=== PATIENT | female | born 1960 | race African-American/Black ===

== ENCOUNTER 2022-04-10 11:41 | Emergency (ER) | payer MEDICARE, MEDICAID ==
[~2022-04-10] VITALS: Ht 157.5 cm; Wt 57.0 kg
[2022-04-10 11:55] VITALS: BP 117/77
[2022-04-10] MEDS ORDERED: CALCITROL (12:08)
[2022-04-10] MEDS ORDERED: CATAPRESS (12:08)
[2022-04-10] MEDS ORDERED: SIMV-43 PO (12:08)
[2022-04-10] MEDS ORDERED: DIVA500T3 PO (12:08)
[2022-04-10] MEDS ORDERED: MELA5TAB19 PO (12:08)
[2022-04-10] MEDS ORDERED: LEVO150T8 PO (12:08)
[2022-04-10] MEDS ORDERED: ESCI20TA PO (12:08)
[2022-04-10] MEDS ORDERED: QUET200T PO (12:08)
[2022-04-10] MEDS ORDERED: FERR325T6 PO (12:08)
[2022-04-10] MEDS ORDERED: OMEP20TA23 PO (12:08)
[2022-04-10] MEDS ORDERED: OXYB5TAB16 PO (12:08)
[2022-04-10] MEDS ORDERED: ZOLP10TA2 PO (12:08)
[2022-04-10] MEDS ORDERED: ACETAMINOPHEN 500MG TABLET PO ONE (13:00)
== END 2022-04-10 15:03 | disposition home or self-care (01) ==
LOC: ER 11:41
DX: S60.222A Contusion of left hand, initial encounter (principal); W07.XXXA Fall from chair, initial encounter; Y93.89 Activity, other specified; Y92.89 Other specified places as the place of occurrence of the external cause; Y99.9 Unspecified external cause status; I12.9 Hypertensive chronic kidney disease with stage 1 through stage 4 chronic kidney disease, or unspecified chronic kidney disease; E11.22 Type 2 diabetes mellitus with diabetic chronic kidney disease; N18.9 Chronic kidney disease, unspecified; E78.00 Pure hypercholesterolemia, unspecified; K21.9 Gastro-esophageal reflux disease without esophagitis; H26.9 Unspecified cataract; E03.9 Hypothyroidism, unspecified; F79 Unspecified intellectual disabilities; F25.9 Schizoaffective disorder, unspecified; Z88.3 Allergy status to other anti-infective agents
CPT/HCPCS: 29125; 73110; 73130; 99284

== ENCOUNTER 2022-11-20 10:02 | Emergency (ER) | payer MEDICARE, MEDICAID ==
[~2022-11-20] VITALS: Ht 152.4 cm; Wt 54.1 kg
[~2022-11-20 10:02] MED LIST: CALCITROL; CATAPRESS; DIVA500T3 PO; ESCI20TA PO; FERR325T6 PO; LEVO150T8 PO; MELA5TAB19 PO; OMEP20TA23 PO; OXYB5TAB16 PO; QUET200T PO; SIMV-43 PO; ZOLP10TA2 PO
[2022-11-20 12:38] LABS: BASOPHILS % 0.3 % (0.0-2.0); EOSINOPHILS % 0.4 % (0.0-5.0); HEMATOCRIT. 31.2 % (36.0-48.0); HEMOGLOBIN. 10.6 g/dL (12.0-16.0); MEAN CORPUSCULAR HEMOGLOBIN 30.5 pg (28.0-32.0); MEAN CORPUSCULAR VOLUME 89.6 fL (81.0-99.0); MEAN PLATELET VOLUME 9.1 fl (7.4-10.4); NEUTROPHILS % 41.3 % (40.0-76.0); PLATELET 177 x1000/uL (130-400); RED BLOOD CELL COUNT 3.48 mill/uL (4.2-5.4); RED CELL DISTRIBUTION WIDTH 16.6 % (11.6-14.6)
[2022-11-20 12:45] LABS: PROTHROMBIN TIME 10.6 sec (9.6-11.0)
[2022-11-20 12:58] LABS: CHLORIDE 112 mEq/L (98-107)
[2022-11-20 15:15] LABS: CLARITY URINE CLEAR (CLEAR); COLOR URINE YELLOW (YELLOW); KETONES URINE NEGATIVE (NEGATIVE); LEUKOCYTE ESTERASE URINE TRACE (NEGATIVE); NITRITE URINE NEGATIVE (NEGATIVE); OCCULT BLOOD URINE NEGATIVE (NEGATIVE); PROTEIN URINE TRACE (NEGATIVE); SPECIFIC GRAVITY URINE 1.015 (1.005-1.030)
[2022-11-20] MEDS ORDERED: POLY17PO3 MT (16:22)
[2022-11-20 16:46] VITALS: BP 178/105
== END 2022-11-20 16:47 | disposition home or self-care (01) ==
LOC: ER 10:02
DX: K59.00 Constipation, unspecified (principal); I48.91 Unspecified atrial fibrillation; I31.39 Other pericardial effusion (noninflammatory); E11.9 Type 2 diabetes mellitus without complications; E78.00 Pure hypercholesterolemia, unspecified; I10 Essential (primary) hypertension; Z86.39 Personal history of other endocrine, nutritional and metabolic disease; Z88.1 Allergy status to other antibiotic agents; Z79.899 Other long term (current) drug therapy; Z98.890 Other specified postprocedural states
CPT/HCPCS: 36415; 74176; 80053; 81003; 83605; 84484; 85025; 93005; 99285

== ENCOUNTER 2023-08-26 07:06 | Inpatient (IN) | payer MEDICARE, MEDICAID ==
[~2023-08-26] VITALS: Ht 157.5 cm; Wt 56.2 kg
[~2023-08-26 07:06] MED LIST changes: +ACET-2178 PO; +AMLO2.5T45 PO; +BUPIVACAINE HCL/PF 0.5% (5MG/ML) 10ML ONE; +CALC-1042 PO; +CALC0.253 PO; -CALCITROL; -CATAPRESS; +CHOL2000 PO; +CLON0.1T PO; +DIVA250T4 PO; +DOCU100T28 PO; +LOSA50TA41 PO; +MULT-230 PO; +NEOM14OI TP; -OXYB5TAB16 PO; +OXYB5TAB21 PO; +POLY17PO3 MT; +SENN15TA4 PO; +SKIN ADHESIVE 0.7 GM EA TOP ONE; +SODIUM CHLORIDE 0.9% 1,000 ML IV SCH
[2023-08-26 09:02] LABS: CALCIUM 9.1 mg/dL (8.7-10.4); CARBON DIOXIDE 34 mEq/L (21-32); CHLORIDE 100 mEq/L (98-107); CREATININE 1.1 mg/dL (0.6-1.0); GLUCOSE 101 mg/dL (70-105); SODIUM 139 mEq/L (136-145); UREA NITROGEN BLOOD 19 mg/dL (9-23)
[2023-08-26] MEDS ORDERED: BUPIVACAINE HCL/PF 0.5% (5MG/ML) 10ML ONE (09:57)
[2023-08-26] MEDS ORDERED: SKIN ADHESIVE 0.7 GM EA TOP ONE (09:57)
[2023-08-26] MEDS ORDERED: FENTANYL CITRATE/PF 50MCG/ML 2ML VIAL ONE (10:06)
[2023-08-26] MEDS ORDERED: MIDAZOLAM HCL 2 MG/2 ML VIAL ONE (10:06)
[2023-08-26] MEDS ORDERED: ROCURONIUM BROMIDE 10MG/ML VIAL 5ML IV ONE ×2 (10:06→14:12)
[2023-08-26] MEDS ORDERED: CEFAZOLIN SODIUM 1000MG/VIAL ONE (10:06)
[2023-08-26] MEDS ORDERED: PROPOFOL 200MG/20ML VIAL IV ONE (10:06)
[2023-08-26] MEDS ORDERED: MORPHINE SULFATE 4 MG/ML INJ (FOR IV/IM USE) IV PRN (11:00)
[2023-08-26] MEDS ORDERED: ONDANSETRON HCL 4MG/2ML INJ IV PRN (11:00)
[2023-08-26] MEDS: DEXT 5%/0.45% NACL KCL 20MEQ/L 1,000 ML IV SCH (11:00)
[2023-08-26] MEDS ORDERED: NALOXONE HCL 0.4MG/ML VIAL IV PRN (11:15)
[2023-08-26] MEDS ORDERED: VASOPRESSIN 20 UNIT/ML 1ML ONE (11:49)
[2023-08-26] MEDS ORDERED: GLYCOPYRROLATE 0.2 MG/ML 2ML VIAL ONE (12:08)
[2023-08-26 12:20] VITALS: PULSE 83; RESP 13
[2023-08-26] MEDS ORDERED: HYDROMORPHONE HCL/PF 2MG/ML CPJ ONE (14:13)
[2023-08-26] MEDS: ALBUMIN HUMAN 12.5G/250ML (5%) IV NR (14:36)
[2023-08-26] MEDS: FLUMAZENIL 0.1 MG/ML 5ML VIAL IV PRN (14:38)
[2023-08-26] MEDS ORDERED: ESMOLOL HCL 10MG/ML 10ML VIAL IV ONE (14:43)
[2023-08-26] MEDS ORDERED: NEOSTIGMINE METHYLSULFATE 1MG/ML 10 ML VIAL ONE (14:51)
[2023-08-26] MEDS: NOREPINEPHRINE 8MG/250ML PMX 250 ML IV PRN (14:54)
[2023-08-26 14:56] LABS: BASOPHILS % 1.2 % (0.0-2.0); EOSINOPHILS % 0.5 % (0.0-5.0); HEMOGLOBIN. 7.1 g/dL (12.0-16.0); MEAN CORPUSCULAR HEMOGLOBIN 27.2 pg (28.0-32.0); MEAN CORPUSCULAR HGB CONC 32.2 g/dL (31.0-37.0); MEAN CORPUSCULAR VOLUME 84.4 fL (81.0-99.0); MEAN PLATELET VOLUME 8.7 fl (7.4-10.4); NEUTROPHILS % 53.3 % (40.0-76.0); PLATELET 137 x1000/uL (130-400); WHITE BLOOD COUNT 7.2 x1000/uL (4.5-11.0)
[2023-08-26 15:14] LABS: ALANINE AMINOTRANSFERASE < 7 IU/L (10-49); ALBUMIN 2.4 g/dL (3.2-4.8); ASPARTATE AMINOTRANSFERASE 25 IU/L (<34); BILIRUBIN TOTAL 0.2 mg/dL (0.1-1.0); CALCIUM 7.7 mg/dL (8.7-10.4); CARBON DIOXIDE 28 mEq/L (21-32); CHLORIDE 108 mEq/L (98-107); GLUCOSE 197 mg/dL (70-105); POTASSIUM 3.3 mEq/L (3.5-5.1); SODIUM 143 mEq/L (136-145); UREA NITROGEN BLOOD 15 mg/dL (9-23)
[2023-08-26 15:26] LABS: PROTEIN TOTAL 4.6 g/dL (6.0-8.3)
[2023-08-26] MEDS ORDERED: CEFAZOLIN 1000MG PREMIX 50 ML IV SCH (18:00)
[2023-08-26 18:02] LABS: HEMATOCRIT 30.4 % (36.0-48.0)
[2023-08-26 20:00] VITALS: BP 115/73; PULSE 108; RESP 17; TEMP 98.3
[2023-08-26 21:00] VITALS: BP 134/93; PULSE 106; RESP 20
[2023-08-26] MEDS: FAMOTIDINE 20MG/2ML VIAL IV SCH (22:18)
[2023-08-26 23:00] VITALS: BP 149/95; PULSE 100; RESP 22
[2023-08-26 23:00] LABS: HEMATOCRIT 36.3 % (36.0-48.0)
[2023-08-26] MEDS: CEFAZOLIN 1000MG PREMIX 50 ML IV SCH (23:43)
[2023-08-27] VITALS: BP 153/99; PULSE 102; RESP 24; TEMP 98.9
[2023-08-27 04:03] VITALS: BP 157/98; PULSE 109; RESP 27; TEMP 98.1
[2023-08-27] MEDS: MORPHINE SULFATE 2 MG/ML CPJ (NOT FOR IM USE) IV PRN (04:21)
[2023-08-27 06:51] LABS: HEMATOCRIT 40.2 % (36.0-48.0); HEMOGLOBIN 12.6 g/dL (12.0-16.0)
[2023-08-27 08:00] VITALS: BP 149/98; PULSE 106; RESP 26; TEMP 98.2
[2023-08-27 09:21] LABS: BASOPHILS % 0.4 % (0.0-2.0); HEMATOCRIT. 35.4 % (36.0-48.0); HEMOGLOBIN. 11.7 g/dL (12.0-16.0); LYMPHOCYTES % 9.1 % (20.0-50.0); MEAN CORPUSCULAR VOLUME 84.9 fL (81.0-99.0); MEAN PLATELET VOLUME 8.7 fl (7.4-10.4); MONOCYTES % 4.8 % (2.0-8.0); NEUTROPHILS % 85.7 % (40.0-76.0); PLATELET 154 x1000/uL (130-400); RED BLOOD CELL COUNT 4.18 mill/uL (4.2-5.4); RED CELL DISTRIBUTION WIDTH 16.1 % (11.6-14.6); WHITE BLOOD COUNT 9.9 x1000/uL (4.5-11.0)
[2023-08-27 10:02] LABS: CALCIUM 8.7 mg/dL (8.7-10.4); CARBON DIOXIDE 31 mEq/L (21-32); CHLORIDE 108 mEq/L (98-107); GLUCOSE 137 mg/dL (70-105); POTASSIUM 4.1 mEq/L (3.5-5.1); SODIUM 143 mEq/L (136-145); UREA NITROGEN BLOOD 13 mg/dL (9-23)
[2023-08-27 12:00] VITALS: BP 157/98; PULSE 109; RESP 27; TEMP 98.1
[2023-08-27 16:00] VITALS: BP 147/99; PULSE 112; RESP 22; TEMP 98.7
[2023-08-27] MEDS: DEXT 5%/0.45% NACL KCL 20MEQ/L 1,000 ML IV SCH (18:13)
[2023-08-27 20:00] VITALS: BP 141/101; PULSE 112; RESP 20; TEMP 98.5
[2023-08-28] VITALS: BP 146/86; PULSE 122; RESP 20; TEMP 97.6
[2023-08-28 04:01] VITALS: BP 154/101; PULSE 112; RESP 18; TEMP 97.6
[2023-08-28] MEDS: METOPROLOL TARTRATE 5MG/5ML VIAL IV PRN (06:28)
[2023-08-28 08:00] VITALS: BP 150/101; PULSE 120; RESP 19; TEMP 99.8
[2023-08-28] MEDS: ACETAMINOPHEN 650MG SUPP PR PRN (10:45)
[2023-08-28 12:00] VITALS: BP 152/105; PULSE 118; RESP 17; TEMP 101.1
[2023-08-28 13:38] LABS: T4 FREE 0.71 ng/dL (0.89-1.76); THYROID STIMULATING HORMONE 4.59 uIU/mL (0.55-4.78)
[2023-08-28 19:15] VITALS: BP 152/95; PULSE 112; RESP 16; TEMP 98.9
[2023-08-28 20:25] VITALS: PULSE 106; RESP 18; O2SAT 99
[2023-08-28] MEDS: IPRATROPIUM/ALBUTEROL 0.5-3(2.5)MG/3ML NEB HHN SCH (20:25)
[2023-08-28] MEDS: METRONIDAZOLE 500MG TABLET PO SCH (21:22)
[2023-08-28] MEDS: METOPROLOL TARTRATE 50MG TABLET PO SCH (21:23)
[2023-08-28] MEDS: CEFTRIAXONE 2GM/50ML 50 ML IV SCH (21:26)
[2023-08-29] VITALS (9 sets, daily range): BP systolic 106–173; BP diastolic 72–98; PULSE 76–107; RESP 15–24; TEMP 97.8–99; O2SAT 95–99
[2023-08-29 06:06] LABS: BASOPHILS % 0.3 % (0.0-2.0); HEMATOCRIT. 32.1 % (36.0-48.0); HEMOGLOBIN. 10.4 g/dL (12.0-16.0); LYMPHOCYTES % 13.8 % (20.0-50.0); MEAN CORPUSCULAR HEMOGLOBIN 27.5 pg (28.0-32.0); MEAN CORPUSCULAR HGB CONC 32.4 g/dL (31.0-37.0); MEAN CORPUSCULAR VOLUME 84.8 fL (81.0-99.0); MEAN PLATELET VOLUME 8.7 fl (7.4-10.4); MONOCYTES % 3.9 % (2.0-8.0); PLATELET 144 x1000/uL (130-400); RED BLOOD CELL COUNT 3.79 mill/uL (4.2-5.4); RED CELL DISTRIBUTION WIDTH 17.1 % (11.6-14.6); WHITE BLOOD COUNT 13.8 x1000/uL (4.5-11.0)
[2023-08-29 06:21] LABS: CALCIUM 9.3 mg/dL (8.7-10.4); CARBON DIOXIDE 29 mEq/L (21-32); CHLORIDE 111 mEq/L (98-107); CHOLESTEROL 147 mg/dL (<200); CREATININE 0.9 mg/dL (0.6-1.0); GLUCOSE 144 mg/dL (70-105); HDL CHOLESTEROL 47 mg/dL (>65); LDL CHOLESTEROL 54 mg/dL (5-100); POTASSIUM 4.3 mEq/L (3.5-5.1); SODIUM 145 mEq/L (136-145); TRIGLYCERIDE 125 mg/dL (0-150); UREA NITROGEN BLOOD 13 mg/dL (9-23)
[2023-08-29] MEDS: AMLODIPINE 5MG TABLET PO SCH (09:00)
[2023-08-29] MEDS: HYDRALAZINE 20MG/ML VIAL IV SCH (12:00)
[2023-08-29] MEDS: MAGNESIUM 2 G PREMIX 50 ML IV NR (14:18)
[2023-08-30] VITALS (9 sets, daily range): BP systolic 121–146; BP diastolic 74–95; PULSE 95–113; RESP 15–22; TEMP 98–99.3; O2SAT 94–95
[2023-08-30 06:13] LABS: CALCIUM 8.5 mg/dL (8.7-10.4); CARBON DIOXIDE 27 mEq/L (21-32); CHLORIDE 110 mEq/L (98-107); CREATININE 0.9 mg/dL (0.6-1.0); GLUCOSE 155 mg/dL (70-105); POTASSIUM 3.7 mEq/L (3.5-5.1); SODIUM 143 mEq/L (136-145); UREA NITROGEN BLOOD 11 mg/dL (9-23)
[2023-08-30 06:17] LABS: BASOPHILS % 0.4 % (0.0-2.0); EOSINOPHILS % 0.2 % (0.0-5.0); HEMOGLOBIN. 10.2 g/dL (12.0-16.0); LYMPHOCYTES % 22.1 % (20.0-50.0); MEAN CORPUSCULAR HGB CONC 34.1 g/dL (31.0-37.0); MEAN CORPUSCULAR VOLUME 82.3 fL (81.0-99.0); MEAN PLATELET VOLUME 8.1 fl (7.4-10.4); MONOCYTES % 3.9 % (2.0-8.0); NEUTROPHILS % 73.4 % (40.0-76.0); PLATELET 168 x1000/uL (130-400); RED BLOOD CELL COUNT 3.64 mill/uL (4.2-5.4); RED CELL DISTRIBUTION WIDTH 16.6 % (11.6-14.6); WHITE BLOOD COUNT 7.8 x1000/uL (4.5-11.0)
[2023-08-31] VITALS (8 sets, daily range): BP systolic 117–143; BP diastolic 72–117; PULSE 83–118; RESP 18–26; TEMP 98–98.7; O2SAT 97
[2023-08-31 06:41] LABS: CALCIUM 8.6 mg/dL (8.7-10.4); CARBON DIOXIDE 27 mEq/L (21-32); CHLORIDE 110 mEq/L (98-107); GLUCOSE 153 mg/dL (70-105); POTASSIUM 4.2 mEq/L (3.5-5.1); SODIUM 143 mEq/L (136-145); UREA NITROGEN BLOOD 10 mg/dL (9-23)
[2023-08-31 06:43] LABS: HEMOGLOBIN. 10.5 g/dL (12.0-16.0); MEAN CORPUSCULAR HGB CONC 33.8 g/dL (31.0-37.0); MEAN CORPUSCULAR VOLUME 82.9 fL (81.0-99.0); MEAN PLATELET VOLUME 8.4 fl (7.4-10.4); PLATELET 229 x1000/uL (130-400); RED BLOOD CELL COUNT 3.74 mill/uL (4.2-5.4); RED CELL DISTRIBUTION WIDTH 16.9 % (11.6-14.6)
[2023-08-31 07:11] LABS: DIFFERENTIAL COMMENT 1
[2023-08-31] MEDS: SODIUM PHOSPHATE 15 MMOL in DEXT 5% WATER 245 ML IV NR (12:30)
[2023-08-31] MEDS: MAGNESIUM 4 G PREMIX 100 ML IV NR (12:30)
[2023-08-31 14:52] LABS: NUCLEATED RED BLOOD CELLS 3 /100 WBC; PLATELET ESTIMATE NORMAL
[2023-08-31] MEDS: POTASSIUM PHOSPHATE 15 MMOL in DEXT 5% WATER 245 ML IV NR (16:30)
[2023-08-31 18:42] LABS: PHOSPHORUS 3.1 mg/dL (2.5-4.9)
[2023-09-01] VITALS (7 sets, daily range): BP systolic 129–147; BP diastolic 77–95; PULSE 75–97; RESP 20–27; TEMP 97.7–98.7; O2SAT 95–96
[2023-09-01 07:23] LABS: CALCIUM 8.9 mg/dL (8.7-10.4); CARBON DIOXIDE 22 mEq/L (21-32); CHLORIDE 107 mEq/L (98-107); CREATININE 0.8 mg/dL (0.6-1.0); GLUCOSE 116 mg/dL (70-105); PHOSPHORUS 3.6 mg/dL (2.5-4.9); POTASSIUM 4.3 mEq/L (3.5-5.1); SODIUM 139 mEq/L (136-145); UREA NITROGEN BLOOD 13 mg/dL (9-23)
[2023-09-01] MEDS ORDERED: METO-539 PO (10:11)
[2023-09-01] MEDS ORDERED: AMLO5TAB88 PO (10:11)
[2023-09-01] MEDS ORDERED: AMOX1TAB16 MT (10:11)
[2023-09-01] MEDS: HYDRALAZINE HCL 25MG TABLET PO SCH (18:48)
[2023-09-02] VITALS (8 sets, daily range): BP systolic 117–151; BP diastolic 66–89; PULSE 67–92; RESP 16–20; TEMP 97.4–98.8; O2SAT 96–98
[2023-09-03] VITALS: BP 104/75; PULSE 73; RESP 17; TEMP 99.4
[2023-09-03 04:00] VITALS: BP 148/87; PULSE 85; RESP 20; TEMP 98.1
[2023-09-03 08:00] VITALS: BP 131/76; PULSE 90; RESP 19; TEMP 98.2
[2023-09-03 12:00] VITALS: BP 92/60; PULSE 76; RESP 19; TEMP 98.4
[2023-09-03 16:00] VITALS: BP 127/64; PULSE 70; RESP 20; TEMP 98.4
[2023-09-03 20:00] VITALS: BP_SYST 107; BP_SYST 116; BP_DIAS 68; BP_DIAS 71; PULSE 79; RESP 18; TEMP 98.6
[2023-09-04] VITALS: BP 116/71; PULSE 82; RESP 16; TEMP 99.4
[2023-09-04 04:00] VITALS: BP 123/70; PULSE 91; RESP 18; TEMP 98.7
[2023-09-04 08:00] VITALS: BP 95/52; PULSE 101; RESP 18; TEMP 97.9
[2023-09-04 12:00] VITALS: BP 119/73; PULSE 78; RESP 20; TEMP 97.9
[2023-09-04] MEDS: METRONIDAZOLE 500MG TABLET PO SCH (14:24)
[2023-09-04] MEDS: CEFTRIAXONE 2GM/50ML 50 ML IV SCH (14:24)
[2023-09-04 16:00] VITALS: BP 114/75; PULSE 95; RESP 18; TEMP 99
[2023-09-04 20:00] VITALS: BP 115/83; PULSE 72; RESP 18; TEMP 96.7
[2023-09-05 04:00] VITALS: BP_SYST 126; BP_DIAS 82; BP_DIAS 83; PULSE 70; RESP 18; TEMP 97.3; TEMP 97.6
[2023-09-05 08:00] VITALS: BP_SYST 105; BP_SYST 107; BP_DIAS 72; PULSE 101; PULSE 99; RESP 20; TEMP 96.7
[2023-09-05 12:00] VITALS: PULSE 78; RESP 18; TEMP 98.7
[2023-09-05 16:00] VITALS: BP 117/88; PULSE 97; RESP 19; TEMP 97.7
[2023-09-05 20:00] VITALS: PULSE 111; RESP 16; TEMP 97.8
[2023-09-06 04:00] VITALS: BP 114/80; PULSE 102; RESP 18; TEMP 97.1
[2023-09-06 08:00] VITALS: BP 112/78; PULSE 108; RESP 18; TEMP 95.2
[2023-09-06 12:00] VITALS: BP 112/78; PULSE 108; RESP 18; TEMP 95.2
[2023-09-06 16:00] VITALS: BP 133/80; PULSE 76; RESP 18; TEMP 96.3
[2023-09-06 20:00] VITALS: BP 134/81; PULSE 75; RESP 18; TEMP 97.9
[2023-09-07] VITALS: BP 132/80; PULSE 65; RESP 18; TEMP 97.9
[2023-09-07 04:00] VITALS: BP 128/84; PULSE 72; RESP 18; TEMP 98.8
[2023-09-07 08:00] VITALS: BP 137/62; PULSE 92; RESP 20; TEMP 98.2
[2023-09-07 12:00] VITALS: BP 135/69; PULSE 90; RESP 21; TEMP 97.8
[2023-09-07 16:00] VITALS: BP 141/80; PULSE 90; RESP 20; TEMP 97.4
[2023-09-07 20:00] VITALS: BP 102/52; PULSE 90; RESP 18; TEMP 97.9
[2023-09-07] MEDS: ZOLPIDEM TARTRATE 5MG TABLET PO PRN (21:15)
[2023-09-08] VITALS: BP 108/63; PULSE 81; RESP 18; TEMP 98.1
[2023-09-08 04:00] VITALS: BP 127/61; PULSE 83; RESP 18; TEMP 97.9
[2023-09-08 08:00] VITALS: BP 98/72; PULSE 96; RESP 18; TEMP 97.5
[2023-09-08 12:00] VITALS: BP 113/62; PULSE 84; RESP 17; TEMP 97.3
[2023-09-08] MEDS ORDERED: ZOLPIDEM TARTRATE 5MG TABLET PO PRN (14:41)
[2023-09-08 16:08] VITALS: BP 133/76; PULSE 82; RESP 18; TEMP 97.6
[2023-09-08 20:00] VITALS: BP 123/71; PULSE 84; RESP 18; TEMP 97.9
[2023-09-09 04:00] VITALS: BP 123/78; PULSE 92; RESP 18; TEMP 97.9
[2023-09-09 08:00] VITALS: BP 114/91; PULSE 106; RESP 17; TEMP 97.8
[2023-09-09 10:05] VITALS: BP 90/59; PULSE 76; TEMP 97.5; O2SAT 98
[2023-09-10] MEDS ORDERED: METO-539 MT (14:00)
[2023-09-10] MEDS ORDERED: AMLO5TAB88 MT (14:00)
== END 2023-09-09 10:50 | disposition home health service (06) | DRG 329 ==
LOC: OR 07:06 → 3WST 20:33 → 6EST 09-02 02:44
PROVIDERS: ADMIT Family Medicine Adult Medicine; ATTEND Family Medicine Adult Medicine
PROC: 0DTF0ZZ Resection of Right Large Intestine, Open Approach (ICD-10-PCS; principal; 2023-08-26)
PROC: 30233N1 Transfusion of Nonautologous Red Blood Cells into Peripheral Vein, Percutaneous Approach (ICD-10-PCS; 2023-08-26)
DX: C18.2 Malignant neoplasm of ascending colon (principal); A41.9 Sepsis, unspecified organism; E44.0 Moderate protein-calorie malnutrition; D64.9 Anemia, unspecified; I10 Essential (primary) hypertension; E11.9 Type 2 diabetes mellitus without complications; E83.39 Other disorders of phosphorus metabolism; F79 Unspecified intellectual disabilities; F25.9 Schizoaffective disorder, unspecified; Z20.822 Contact with and (suspected) exposure to COVID-19; E83.42 Hypomagnesemia; E03.9 Hypothyroidism, unspecified; E87.6 Hypokalemia; Z79.1 Long term (current) use of non-steroidal anti-inflammatories (NSAID); Z79.899 Other long term (current) drug therapy; Z85.038 Personal history of other malignant neoplasm of large intestine; Z68.22 Body mass index [BMI] 22.0-22.9, adult
CPT/HCPCS: 36415; 80048; 80053; 80061; 82378; 83735; 84100; 84145; 84439; 84443; 84480; 85014; 85018; 85025; 86850; 86900; 86920; 87426; 87804; 88307; 93005; 93306; 94002; 94640; 97116; 97162; J0360; J0690; J0696; J1170; J2250; J2270; J2704; J2710; J3010; J3475; J3490; J7030; J7060; P9016; P9041

== ENCOUNTER 2024-08-09 10:38 | Emergency (ER) | payer MEDICARE, MEDICAID ==
[~2024-08-09] VITALS: Ht 165.1 cm; Wt 79.5 kg
[~2024-08-09 10:38] MED LIST changes: -AMLO2.5T45 PO; +AMLO5TAB88 MT; -BUPIVACAINE HCL/PF 0.5% (5MG/ML) 10ML ONE; -LOSA50TA41 PO; +METO-539 MT; -SKIN ADHESIVE 0.7 GM EA TOP ONE; -SODIUM CHLORIDE 0.9% 1,000 ML IV SCH
[2024-08-09 10:53] VITALS: O2SAT 95
[2024-08-09] MEDS: IBUPROFEN 600MG TABLET PO ONE (11:35)
[2024-08-09 11:36] VITALS: BP 161/98; PULSE 75; RESP 16; TEMP 36.9; O2SAT 95
== END 2024-08-09 12:43 | disposition home or self-care (01) ==
LOC: ER 10:38
DX: M19.042 Primary osteoarthritis, left hand (principal); M79.642 Pain in left hand; E03.9 Hypothyroidism, unspecified; E11.9 Type 2 diabetes mellitus without complications; E78.00 Pure hypercholesterolemia, unspecified; F79 Unspecified intellectual disabilities; I10 Essential (primary) hypertension; K21.9 Gastro-esophageal reflux disease without esophagitis; Z79.899 Other long term (current) drug therapy; Z88.1 Allergy status to other antibiotic agents
CPT/HCPCS: 73130; 99283